=== PATIENT | male | born 1965 | race Caucasian/White ===

== ENCOUNTER 2017-10-02 06:19 | Inpatient (IN) ==
[2017-10-02] MEDS ORDERED: cefOXitin 2,000 MG in Water for inj. (sterile) 20 ML 10 ML IVP ONE (06:40)
[2017-10-02] MEDS ORDERED: *HR* FentaNYL (PF) 100 MCG/2 ML VIAL ONE ×2 (07:13→09:32)
[2017-10-02] MEDS ORDERED: *HR* Midazolam HCl 2 MG/2 ML VIAL ONE (07:13)
[2017-10-02] MEDS ORDERED: *HR* Propofol 200 MG/20 ML VIAL IVP ONE ×2 (07:13→10:36)
[2017-10-02] MEDS ORDERED: Lidocaine -MPF 2% 2 ML VIAL ONE (07:17)
[2017-10-02] MEDS ORDERED: *HR* Rocuronium Bromide 50 MG/5 ML VIAL ONE ×2 (07:17→08:47)
--- NOTE | 2017-10-02 07:19 | Anesthesia Evaluation PreOp ---
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 HX Other Medical History: Hepatic (hepatic steatosis), Diabetes Type II Anesthesia History: No Prior Anesthetic Complications, Past Anesthesia Alcohol Use: none Drug use: none Medications and Allergies Acetaminophen [Tylenol] 1,000 mg PO Q6HR 08/20/16 [History] Allopurinol [Zyloprim 100 MG] 100 mg PO BID 08/20/16 [History] Gemfibrozil [Lopid] 600 mg PO DAILY 08/20/16 [History] Losartan Potassium [Cozaar] 50 mg PO DAILY 08/20/16 [History] Metformin HCl [Fortamet] 500 mg PO DAILY 08/20/16 [History] Alprazolam [Alprazolam Xr] 0.5 mg PO DAILY 07/30/17 [History] Aspirin [Lo-Dose Aspirin EC] 81 mg PO DAILY 07/30/17 [History] Atorvastatin Calcium [Lipitor] 80 mg PO HS 07/30/17 [History] Sitagliptin Phosphate [Januvia] 50 mg PO DAILY 07/30/17 [History] 3 Allergy/AdvReac Type Severity Reaction Status Date / Time No Known Allergies Allergy Verified 09/13/17 16:02 - Meds/Allergy Pre-op Review Medications Reviewed: Yes Allergies Reviewed: Yes Beta Blockers on Current Med List: Yes If Beta Blockers taken, Date/Time (Last Dose taken): 10/02/2017 at 0500 Anesthesia Results - Labs Laboratory Tests 09/04/16 09/13/17 09/18/17 00:38 14:30 07:08 WBC 5.8 Hgb 14.8 Hct 43.7 Plt Count 229 PT 21.9 H INR 2.0 APTT 26.9 Sodium 137 Potassium 4.2 BUN 26 H Creatinine 1.08 - Imaging EKG: report reviewed (09/13/2017 SINUS RHYTHM RIGHT BUNDLE BRANCH BLOCK LEFT ANTERIOR FASCICULAR BLOCK POSSIBLE LEFT VENTRICULAR HYPERTROPHY) Additional studies: 08/20/2016 LEFT HEART CATH Indications: Unstable Angina, Acsending aortic anuerysm Impressions: The left ventricle is normal and has normal contractility EF 65% Moderate atherosclerotic coronary artery disease. Recommendations: Optimal medical therapy of patient's disease. Aggressive risk factor modification. 08/20/2016 Echo Impressions: LVEF 60%. Normal LV chamber size, wall thickness and function. Mild left ventricular diastolic dysfunction. Normal right ventricular structure and function. No evidence of pulmonary hypertension. Portions of the aortic root visualized appear dilated with effacement of the sinotubular junction, largest diameter 4.7 cm. Trace aortic regurgitation. Anesthesia Exam O2 Sat Height 1.68 m Height 1.68 m Height 1.68 m Weight 111.13 kg Weight 111.13 kg Weight 111.13 kg O2 Sat by Pulse Oximetry 96 O2 Sat by Pulse Oximetry 96 Vital Signs Temp Pulse Resp BP Pulse Ox 97.7 F 62 18 120/76 96 10/02/17 06:41 10/02/17 06:41 10/02/17 06:41 10/02/17 06:41 10/02/17 06:41 Blood glucose: 120 Height: 5'6'' Weight: 245 lbs NPO (# of Hours): 8 Pain Scale: 0 Pain Scale Used: Numeric (1 - 10) - HEENT Pupil (Motor): EOMI Mallampati: III Teeth: Normal Oral Opening: Greater than 3 - OILSEED MEAT PRESSER LOC: Oriented OIL[employer]ED MEAT [employer]ESSER Motor: Normal RUE, Normal LUE, Normal RLE, Normal LLE, Normal Face OIL[employer]ED [employer] Sensory: Normal: RUE, LUE, RLE, LLE, Face - Cardiac Rhythm: Regular Murmur: None - Pulmonary Breath Sounds: bilateral Clear Respiratory Effort: Symmetrical Anesthesia Assess/Plan ASA Score: 3 Modified Evin Scale for Level of Consciousness: Cooperative, oriented, and tranquil Anesthetic Plan: General Monitoring Plan: Standard Monitors Recovery Plan: PACU
[2017-10-02] MEDS: Ringers Solution, Lactated 1,000 ML IVC SCH ×2 (07:42→10:05)
--- NOTE | 2017-10-02 08:13 | History & Physical Report ---
Date of Encounter: 10/02/17 Time of Encounter: 08:12 24 Hour HP Update - Instructions Instructions: If the History and Physical is less than 30 days old and was completed prior to A.M. admission and or procedure and has NOT been updated on calendar day of procedure please complete this update prior to performing procedure. - Update Patient reports changes in Medical Condition: No Changes in examination, assessment, or condition: No Changes in Medication: No Preop tests/diagnostics Reviewed: Yes Surgery Remains Indicated: Yes Consent for Planned Operative Procedure(s) Verified: Yes - Pre-Operative Checklist Preoperative Checklist Indicated: Yes Prophylactic Antibiotic Ordered: Yes Home Medications Include Beta Jossue: Yes Beta Jossue Taken Today (Day of Surgery): Yes
[2017-10-02] MEDS ORDERED: Ondansetron 4 MG/2 ML VIAL ONE (08:44)
[2017-10-02] MEDS ORDERED: Dexamethasone 4 MG/ML VIAL ONE (08:44)
[2017-10-02] MEDS ORDERED: Neostigmine Methylsulfate 3 MG/3 ML SYRINGE ONE (10:51)
[2017-10-02] MEDS ORDERED: *HR* Promethazine 25 MG/ML VIAL IVP PRN (11:06)
[2017-10-02] MEDS ORDERED: *HR* Meperidine 25 MG/ML SYRINGE IVP PRN (11:06)
[2017-10-02] MEDS ORDERED: Albuterol 2.5 MG/3 ML NEBULIZER IH PRN (11:06)
[2017-10-02] MEDS: MORPHINE SUL Oral CONC 10 MG/0.5 ML ORAL.SYG SL PRN ×2 (11:19→11:26)
--- NOTE | 2017-10-02 11:43 | Anesthesia Evaluation Post Op ---
Date of Encounter: 10/02/17 Time of Encounter: 11:40 - Vital Signs Vital Signs: vss - Lungs Lungs: Clear Ascult./Percussion - Airway Airway: Non-obstructed - Cardiovascular Regular Rate - Mental Status Mental Status: Alert & Oriented, Answers Appropriately - Pain Pain Scale: 5 Pain Scale used: Numeric (1 - 10) - Nausea Vomiting Nausea Vomiting: Not Present Notes: 10/02/17 11:42 pt not taken liquids or ice chips but has tolerated po pain meds - Discharge PostOp Status: Transfer Patient to floor
[2017-10-02] MEDS ORDERED: Morphine Oral CONC 5 MG/0.25 ML ORAL.SYG PO PRN (12:11)
[2017-10-02] MEDS ORDERED: Ondansetron 4 MG/2 ML VIAL IVP PRN (12:11)
[2017-10-02] MEDS ORDERED: Dextrose Gel 15 GM/37.5 ML TUBE PO PRN ×2 (12:11)
[2017-10-02] MEDS ORDERED: D5% in Water 1,000 ML IVC PRN (12:11)
[2017-10-02] MEDS ORDERED: OXYCODONE Oral CONC 10 MG/0.5 ML ORAL.SYG SL PRN (12:11)
[2017-10-02] MEDS ORDERED: *HR* Dextrose 50 % in Water (Syg) 50 ML SYRINGE IVP PRN (12:11)
[2017-10-02] MEDS ORDERED: ALPRAZolam 0.5 MG TABLET PO PRN (12:11)
[2017-10-02] MEDS: Ketorolac 15 MG/ML VIAL IVP SCH ×3 (12:33→23:44)
[2017-10-02] MEDS: 0.9 % Sodium Chloride 1,000 ML IVC SCH ×2 (12:33→23:45)
--- NOTE | 2017-10-02 16:25 | Operative Note ---
Date of procedure: 10/02/17 Pre-op diagnosis: Unresectable ascending colon polyp Post-op diagnosis: same Procedure: Robotic Ascending colon with stapled anastomosis Anesthesia: INDU Surgeon: Elliott Amaya Was there an welder assistant present: Yes Nursing Consultant: Cherelle Ying Estimated blood loss (cc): 10 Specimen: colon Condition: stable Disposition: same day Procedure in Detail: After informed consent, the patient was taken the operating room placed in the supine position. After adequate sedation and anesthesia the abdomen was prepped and draped. [address] the umbilicus and a Verres needle was inserted into the abdomen. A pneumoperitoneum was created. 3 individual 8 mm cannulas were placed along with a 13 mm cannula. Once in place the [employer] XI robot was brought over the patient's right hip and positioned. The ports were connected the robot. Attention was replaced. Small bowel was swept to the left lateral position. The cecum and ileum were grasped and the vascular pedicle was identified. A window was created. The duodenum was readily identified and kept out of harm's way. The vascular pedicle was taken with a vessel sealer. The remainder of the colon was dissected free from the retroperitoneum. Once the transverse mesocolon had been divided to the level of the transverse colon it was stapled with a robotic stapler. The same was performed for the terminal ileum. Once that was completed the remainder of the lateral attachments were taken down with a vessel sealer. Colon was parked over the patient's right abdomen. The terminal ileum was then placed next to the transverse colon. 2 enterotomies were created and the colon and the small bowel and a 45 mm stapler was fired down both limbs. The common enterotomy was closed with 2-0 silk suture 2. Once completed the ports were removed and the pneumoperitoneum was evacuated. A small midline incision was made and the specimen was retrieved through a wound protection bag. Once finished the midline was closed with a looped PDS suture and the 13 mm cannula was closed with a 0 Vicryl. Chaim were placed in the skin.
[2017-10-02] MEDS: Insulin LISPRO 300 UNITS/3 ML VIAL SQ SCH (16:53)
[2017-10-02] MEDS: *HR* Heparin 5,000 UNIT/ML VIAL SQ SCH (19:47)
[2017-10-02] MEDS ORDERED: MORPHINE SUL Oral CONC 10 MG/0.5 ML ORAL.SYG PO PRN (20:45)
[2017-10-02] MEDS ORDERED: Insulin LISPRO 300 UNITS/3 ML VIAL SQ SCH (21:00)
[2017-10-03] MEDS: Ketorolac 15 MG/ML VIAL IVP SCH ×2 (05:31→12:49)
[2017-10-03] MEDS: *HR* Heparin 5,000 UNIT/ML VIAL SQ SCH (05:32)
[2017-10-03] MEDS ORDERED: *HR* Metformin 500 MG TABLET PO SCH (08:00)
[2017-10-03] MEDS: Insulin LISPRO 300 UNITS/3 ML VIAL SQ SCH ×2 (08:10→12:00)
[2017-10-03] MEDS ORDERED: *HR* SitaGLIPtin 25 MG TABLET PO SCH (09:00)
[2017-10-03] MEDS ORDERED: Aspirin Enteric Coated 81 MG Tablet PO SCH (09:00)
[2017-10-03] MEDS ORDERED: *HR* OxyCODONE/APAP 5/325 TABLET PO PRN (10:00)
--- NOTE | 2017-10-03 10:01 | Discharge Summary ---
Orders not resulted at time of discharge: Pending orders 10/02/17 10:50 Surgical Pathology [PTH] Routine Date of Encounter: 10/03/17 Time of Encounter: 10:21 - Discharge Diagnosis (1) S/P colon resection Priority: Primary Status: Acute (2) Diastasis recti Priority: Secondary Status: Chronic (3) T2DM (type 2 diabetes mellitus) Priority: Secondary Status: Chronic Qualifiers: Diabetes mellitus halfway insulin use: without halfway use Diabetes mellitus complication status: with unspecified complications Qualified Code(s) : E11.8 - Type 2 diabetes mellitus with unspecified complications (4) Essential (primary) hypertension Priority: Secondary Status: Chronic (5) Obesity (BMI 30-39.9) Priority: Secondary Status: Chronic General Surgery Exam Initial Vital Signs Temp Pulse Resp BP Pulse Ox 97.7 F 62 18 120/76 96 10/02/17 06:41 10/02/17 06:41 10/02/17 06:41 10/02/17 06:41 10/02/17 06:41 VITAL SIGNS: Reviewed. See [facility] GENERAL: In no apparent distress. Sitting upright at edge of bed. at bedside. HEENT: Normocephalic, atraumatic, pupils are equal and reactive, extraocular motions intact, oropharynx is pink and moist, there is no neck adenopathy or JVD noted. CHEST/RESPIRATORY: The thorax is free from signs of trauma. Lung sounds: clear to auscultation, normal respiratory effort CARDIAC: Regular rate and rhythm. Normal S1 and S2, without murmurs, gallops, or rubs. VASCULAR: No Edema. 2+ peripheral pulses. ABDOMEN: protuberant, soft, expected postoperative tenderness, active bowel sounds, diastasis recti noted. INCISION: Surgical incision is clean, dry, and intact. There are no signs of cellulitis or infection noted. MUSCULOSKELETAL: Good range of motion of all major joints. Extremities without clubbing, cyanosis or edema. NEUROLOGIC EXAM: Alert and oriented x 3. Speech normal. Follows commands. PSYCHIATRIC: Mood normal. SKIN: No rash or lesions. - Hospital Course Hospital course: Mr. Doe is a 51 year old male who presented on 10/02/2017 for an uncomplicated robotic ascending colon resection with stapled anastomisis due to an unresectable descending colon polyp, under general anesthesia, by Dr. Amaya. He is ambulating and voiding without difficulty, tolerating a full liquid diet without nausea and vomiting, vital signs are stable, and he is afebrile. We will begin discharge planning to home with a follow-up in the office in 2 weeks. - Time Spent with Patient Total time spent providing and/or coordinating discharge services: - Discharge Medications Prescriptions: OxyCODONE/APAP 5/325 [Percocet 5/325 MG] 1 each PO Q4HR PRN 7 Days #28 tablet PRN Reason: Pain Docusate Sodium [Colace] 100 mg PO BID #30 capsule Ibuprofen 800 mg PO Q8H #30 tablet Home Medications: Allopurinol [Zyloprim 100 MG] 100 mg PO BID 08/20/16 [History] Metformin HCl [Fortamet] 500 mg PO DAILY 08/20/16 [History] Alprazolam [Alprazolam Xr] 0.5 mg PO BID PRN 07/30/17 [History] Aspirin [Lo-Dose Aspirin EC] 81 mg PO DAILY 07/30/17 [History] Atorvastatin Calcium [Lipitor] 80 mg PO DAILY 07/30/17 [History] Sitagliptin Phosphate [Januvia] 50 mg PO DAILY 07/30/17 [History] Metoprolol [Lopressor] 25 mg PO BID 10/02/17 [History] Docusate Sodium [Colace] 100 mg PO BID #30 capsule 10/03/17 [Rx] Ibuprofen 800 mg PO Q8H #30 tablet 10/03/17 [Rx] OxyCODONE/APAP 5/325 [Percocet 5/325 MG] 1 each PO Q4HR PRN 7 Days #28 tablet [Rx] Allergies/Adverse Reactions: 3 Allergy/AdvReac Type Severity Reaction Status Date / Time No Known Allergies Allergy Verified 10/02/17 07:46 Date of admission: 10/02/17 12:03 Primary care physician: Dieter Messer Discharging clinician: Berkley Tirado Anticipated date of discharge: 10/03/17 Labs on day of discharge: Labs from last 24 hours 10/03/17 10/02/17 10/02/17 07:47 20:18 16:37 POC Glucose 124 H 179 H 181 H 10/02/17 10/02/17 12:50 06:39 POC Glucose 154 H 120 H - Patient Status Disposition: Home, Self-Care Condition: Good Functional capacity at discharge: independent ambulation Overall status at discharge: patient is progressing back to baseline - Discharge Instructions Instructions: Low Fiber Diet (GEN), Colectomy (DC) Follow Up With: Berkley Tirado CNP [Advanced Practice Nurse] - 10/15/17 1:00 pm Additional Instructions: General Surgical Discharge Instructions 1. No pushing, pulling, or lifting greater than 15 lbs for 4 weeks (depending upon procedure). 2. You may shower beginning today, but no tub baths, soaking, or swimming for 2 weeks. 3. You may resume driving when you are off narcotics and are safe to react in a car. 4. Take ibuprofen every 8 hours for discomfort. If this does not relieve discomfort, you may take the as needed Percocet. Take narcotics as directed. Do not take more narcotics then directed and do not share your narcotics with any other person. Do not drink alcohol while on narcotics. 5. Take stool softeners (Colace) or a water based laxative (Miralax) while taking narcotics. You may hold for loose stools. 6. Report any fevers greater than 100.5F, increase abdominal discomfort, drainage that looks like pus, increased redness or pain at the surgical site, or any vomiting. 7. Report any pain in the calves, shortness of breath, or rapid heartbeat. 8. Follow-up in the office as directed. 9. If you were prescribed antibiotics, do not stop them without talking to your provider. - Diet and Activity Activity: increase activity as tolerated, return to work once cleared by your PCP/specialist (To be determined a follow-up visit) Diet: other
[2017-10-03 11:03] VITALS: BP 127/77
== END 2017-10-03 14:32 | disposition home or self-care (01) | DRG 329 ==
LOC: SAMDAY 06:19 → 3ANU 12:03
PROVIDERS: ADMIT Surgery; ATTEND Surgery

== ENCOUNTER 2021-07-10 17:03 | Inpatient (IN) ==
[2021-07-10] MEDS ORDERED: Azithromycin 500 MG in 0.9 % Sodium Chloride 250 ML IVPB ONE (17:18)
[2021-07-10] MEDS ORDERED: cefTRIAXone 1,000 MG in 0.9 % Sodium Chloride Mini Bag 100 ML IVPB ONE (17:18)
[2021-07-10] MEDS ORDERED: Isovue-370 500 ML BOTTLE IVP ONE (17:19)
[2021-07-10] MEDS ORDERED: Vancomycin 1,500 MG/265 ML IV.SOLN IVPB ONE (17:28)
[2021-07-10] MEDS: 0.9 % Sodium Chloride 1,000 ML IVC SCH ×3 (17:36→20:03)
[2021-07-10 17:49] LABS: Basophils % 0.3 %; Eosinophils % 0.1 %; Hematocrit 36.1 % (37.5-50.1); Hemoglobin 11.8 g/dL (12.9-16.9); Immature Granulocytes % 0.5 % (0-4); Lymphocytes # 0.9 K/mcL (0.6-4.6); Lymphocytes % 7.2 %; Mean Corpuscular HGB Conc 32.7 g/dL (31.6-35.5); Mean Corpuscular Hemoglobin 29.6 pg (28.0-33.3); Mean Corpuscular Volume 90.7 fL (83.0-100.0); Mean Platelet Volume 9.1 fL (9.4-12.4); Neutrophils # 10.8 K/mcL (1.6-8.9); Platelet Count 378 K/mcL (140-400); Red Blood Count 3.98 M/mcL (4.19-5.50); Red Cell Distribution Width 13.7 % (11.5-14.5); Segmented Neutrophils % 83.9 %; White Blood Count 12.8 K/mcL (4.3-11.1)
[2021-07-10 17:56] LABS: INR 1.7; Prothrombin Time 18.5 Seconds (9.4-12.1)
[2021-07-10 17:59] LABS: Activated Partial Thrombo Time 29.9 Seconds (26.0-36.0)
[2021-07-10 18:10] LABS: Alanine Aminotransferase 28 Units/L (7-52); Albumin 3.4 g/dL (3.5-5.7); Albumin/Globulin Ratio 0.9 (1.1-2.2); Alkaline Phosphatase 59 Units/L (34-104); Aspartate Amino Transferase 27 Units/L (13-39); BUN/Creatinine Ratio 25 (6-26); Bilirubin,Direct 0.2 mg/dL (0.0-0.2); Bilirubin,Indirect 0.4 mg/dL (0.0-1.0); Bilirubin,Total 0.6 mg/dL (0.3-1.0); Blood Urea Nitrogen 29 mg/dL (6-20); Calcium 8.8 mg/dL (8.6-10.3); Carbon Dioxide 20 mEq/L (23-29); Chloride 102 mEq/L (98-107); Globulin 3.9 g/dL (2.4-3.5); Glucose 179 mg/dL (70-105); Lipase 87 Units/L (11-82); Magnesium 1.2 mg/dL (1.6-2.6); Osmolality,Calculated 292 (280-300); Phosphorous 2.1 mg/dL (2.7-4.5); Potassium 3.9 mEq/L (3.5-5.1); Sodium 136 mEq/L (136-145); Total Protein 7.3 g/dL (6.4-8.9); Troponin I 0.05 ng/mL (< 0.04); eGFR For African Americans > 60 (> 60); eGFR For Non-African Americans > 60 (> 60)
[2021-07-10 18:13] LABS: VBG HCO3 21 mEq/L (21-27); VBG PCO2 31 mmHg (41-51); VBG PH 7.44 pH Units (7.32-7.42); VBG PO2 45 mmHg (25-50)
[2021-07-10 18:38] LABS: Bilirubin,Urine Negative (Negative); Blood,Urine Small (Negative); Clarity,Urine Clear (Clear); Color,Urine Yellow (Yellow); Glucose,Urine (UA) Normal (Normal); Hyaline Casts,Urine Few per lpf (None Seen); Ketones,Urine Negative (Negative); Leukocyte Esterase,Urine Negative (Negative); Mucus,Urine Few per lpf (None-Few); Nitrite,Urine Negative (Negative); PH,Urine 5.5 pH Units (5.0-8.0); Protein,Urine 100 mg/dL (Neg-Trace); RBC,Urine 15-30 per hpf (0-3); Specific Gravity,Urine > 1.030 (1.010-1.025); Urobilinogen,Urine Normal (Normal); WBC,Urine 0-3 per hpf (0-3)
[2021-07-10] MEDS ORDERED: Ondansetron 4 MG/2 ML VIAL IVP ONE (18:39)
[2021-07-10 18:53] LABS: Adenovirus Not Detected (Not Detect); Bordetella Pertussis Not Detected (Not Detect); Chlamydophila pneumoniae Not Detected (Not Detect); Coronavirus 229E Not Detected (Not Detect); Coronavirus HKU1 Not Detected (Not Detect); Coronavirus NL63 Not Detected (Not Detect); Coronavirus OC43 Not Detected (Not Detect); Human Metapneumovirus Not Detected (Not Detect); Human Rhinovirus/Enterovirus Not Detected (Not Detect); Influenza A Subtype 2009 H1 Not Detected (Not Detect); Influenza B Not Detected (Not Detect); Mycoplasma pneumoniae Not Detected (Not Detect); Parainfluenza Virus 1 Not Detected (Not Detect); Parainfluenza Virus 2 Not Detected (Not Detect); Parainfluenza Virus 3 Not Detected (Not Detect); Parainfluenza Virus 4 Not Detected (Not Detect); Respiratory Syncytial Virus Not Detected (Not Detect); SARS-CoV-2 Not Detected (Not Detect)
[2021-07-10] MEDS ORDERED: Acetaminophen IV 1,000 MG/100 ML BAG IVPB ONE ×2 (19:26→22:17)
[2021-07-10 20:03] LABS: ABG Base Excess -3 mEq/L (-2 to 3); ABG HCO3 20 mEq/L (21-27); ABG Oxygen Saturation 81 % (95-98); ABG PCO2 30 mmHg (35-45); ABG PH 7.44 pH Units (7.32-7.45); ABG PO2 43 mmHg (85-104); ABG TCO2 21 mEq/L (20-26)
[2021-07-10] MEDS ORDERED: Ketorolac 30 MG/ML VIAL IVP STA (21:54)
[2021-07-10] MEDS ORDERED: Ketorolac 30 MG/ML VIAL IM PRN (22:51)
[2021-07-10] MEDS ORDERED: Naloxone 0.4 MG/ML INJ IVP PRN (22:51)
[2021-07-11] MEDS ORDERED: *HR* LORazepam 2 MG/ML VIAL IVP ONE ×2 (02:58→07:17)
[2021-07-11] MEDS: Ketorolac 30 MG/ML VIAL IVP PRN ×3 (05:02→23:59)
[2021-07-11 06:28] LABS: Acinetobacter baumannii by PCR Not Detected (Not Detect); Candida albicans by PCR Not Detected (Not Detect); Candida glabrata by PCR Not Detected (Not Detect); Candida krusei by PCR Not Detected (Not Detect); Candida parapsilosis by PCR Not Detected (Not Detect); Candida tropicalis by PCR Not Detected (Not Detect); Enterobacter cloacae Cmplx PCR Not Detected (Not Detect); Enterobacteriaceae by PCR Not Detected (Not Detect); Enterococcus by PCR Not Detected (Not Detect); Escherichia coli by PCR Not Detected (Not Detect); Klebsiella oxytoca by PCR Not Detected (Not Detect); Klebsiella pneumoniae by PCR Not Detected (Not Detect); Proteus by PCR Not Detected (Not Detect); Pseudomonas aeruginosa by PCR Not Detected (Not Detect); Serratia marcescens by PCR Not Detected (Not Detect); Staphylococcus aureus by PCR Not Detected (Not Detect); Staphylococcus by PCR Not Detected (Not Detect); Streptococcus agalactiae(B)PCR Not Detected (Not Detect); Streptococcus by PCR DETECTED (Not Detect); Streptococcus pneumoniae PCR Not Detected (Not Detect); Streptococcus pyogenes (A) PCR Not Detected (Not Detect); blaKPC Carbapenem-Resist Gene Not Detected (Not Detect); mecA Methicillin-Resist Gene Not Detected (Not Detect); vanA/B Vancomycin-Resist Genes Not Detected (Not Detect)
[2021-07-11] MEDS ORDERED: *HR* Dextrose 50 % in Water (Syg) 50 ML SYRINGE IVP PRN (07:36)
[2021-07-11] MEDS ORDERED: Dextrose Gel 15 GM/37.5 ML TUBE PO PRN ×2 (07:36)
[2021-07-11] MEDS ORDERED: D5% in Water 1,000 ML IVC PRN (07:36)
[2021-07-11] MEDS: Piperacillin/Tazobactam 3.375 GM in 0.9 % Sodium Chloride Mini Bag 100 ML IVPB SCH ×3 (07:37→23:59)
[2021-07-11] MEDS ORDERED: 0.9 % Sodium Chloride 1,000 ML IVC SCH (07:45)
[2021-07-11 08:16] LABS: ABG Base Excess -4 mEq/L (-2 to 3); ABG HCO3 19 mEq/L (21-27); ABG Oxygen Saturation 96 % (95-98); ABG PCO2 28 mmHg (35-45); ABG PH 7.44 pH Units (7.32-7.45); ABG PO2 78 mmHg (85-104); ABG TCO2 20 mEq/L (20-26)
[2021-07-11] MEDS: Vancomycin 1,500 MG/265 ML IV.SOLN IVPB SCH ×2 (09:02→21:06)
[2021-07-11] MEDS: Acetaminophen IV 1,000 MG/100 ML BAG IVPB PRN ×2 (10:48→17:48)
[2021-07-11] MEDS: Insulin LISPRO 300 UNITS/3 ML VIAL SUBQ SCH ×2 (13:09→17:55)
[2021-07-11] MEDS: 0.9 % Sodium Chloride 1,000 ML IVC SCH ×2 (17:00→22:17)
[2021-07-11] MEDS: *HR* Heparin 5,000 UNIT/ML VIAL SQ SCH (17:58)
[2021-07-11] MEDS: ALPRAZolam 0.5 MG TABLET PO PRN (20:22)
[2021-07-11] MEDS: allopurinoL 100 MG TABLET PO SCH (20:22)
[2021-07-12] MEDS: Insulin LISPRO 300 UNITS/3 ML VIAL SUBQ SCH ×4 (00:05→22:00)
[2021-07-12] MEDS: Acetaminophen IV 1,000 MG/100 ML BAG IVPB PRN ×3 (04:37→23:34)
[2021-07-12] MEDS: *HR* Heparin 5,000 UNIT/ML VIAL SQ SCH (04:59)
[2021-07-12 05:23] LABS: BUN/Creatinine Ratio 34 (6-26); Blood Urea Nitrogen 36 mg/dL (6-20); Calcium 7.8 mg/dL (8.6-10.3); Carbon Dioxide 22 mEq/L (23-29); Chloride 108 mEq/L (98-107); Glucose 108 mg/dL (70-105); Osmolality,Calculated 303 (280-300); Sodium 142 mEq/L (136-145); eGFR For African Americans > 60 (> 60); eGFR For Non-African Americans > 60 (> 60)
[2021-07-12] MEDS ORDERED: Heparin 25,000UNIT/250ML 1/2NS 25,000 UNIT/250 ML IV.SOLN IVC SCH ×2 (06:30→08:00)
[2021-07-12 06:39] LABS: Basophils % 0.2 %; Hematocrit 30.3 % (37.5-50.1); Hemoglobin 9.5 g/dL (12.9-16.9); Immature Granulocytes % 0.6 % (0-4); Lymphocytes % 7.4 %; Mean Corpuscular HGB Conc 31.4 g/dL (31.6-35.5); Mean Corpuscular Hemoglobin 29.3 pg (28.0-33.3); Mean Corpuscular Volume 93.5 fL (83.0-100.0); Monocytes # 0.9 K/mcL (0.0-1.3); Monocytes % 6.7 %; Neutrophils # 11.1 K/mcL (1.6-8.9); Platelet Count 388 K/mcL (140-400); Red Blood Count 3.24 M/mcL (4.19-5.50); Red Cell Distribution Width 14.2 % (11.5-14.5); Segmented Neutrophils % 85.1 %; White Blood Count 13.1 K/mcL (4.3-11.1)
[2021-07-12] MEDS ORDERED: *HR* Heparin 5,000 UNIT/ML VIAL IVP PRN ×2 (07:50)
[2021-07-12] MEDS: Ketorolac 30 MG/ML VIAL IVP PRN (08:15)
[2021-07-12] MEDS: Piperacillin/Tazobactam 3.375 GM in 0.9 % Sodium Chloride Mini Bag 100 ML IVPB SCH ×2 (09:23→21:58)
[2021-07-12] MEDS: Vancomycin 1,500 MG/265 ML IV.SOLN IVPB SCH (09:23)
[2021-07-12] MEDS: allopurinoL 100 MG TABLET PO SCH ×2 (09:23→22:05)
[2021-07-12 11:06] LABS: Heparin anti-factor XA UFH < 0.04 IU/mL (0.30-0.70); INR 1.5; Prothrombin Time 16.5 Seconds (9.4-12.1)
[2021-07-12] MEDS ORDERED: Perflutren Lipid Microsphere 1.3 ML in 0.9 % Sodium Chloride 8.7 ML IVP PRN (14:08)
[2021-07-12] MEDS: ALPRAZolam 0.5 MG TABLET PO PRN (22:05)
[2021-07-12] MEDS: Vancomycin 1,750 MG/517.5 ML IV.SOLN IVPB SCH (22:21)
[2021-07-12] MEDS ORDERED: Melatonin 3 MG TABLET PO PRN (22:49)
[2021-07-13] MEDS: Insulin LISPRO 300 UNITS/3 ML VIAL SUBQ SCH ×4 (00:14→16:51)
[2021-07-13] MEDS: Piperacillin/Tazobactam 3.375 GM in 0.9 % Sodium Chloride Mini Bag 100 ML IVPB SCH ×2 (00:21→09:41)
[2021-07-13] MEDS: Vancomycin 1,750 MG/517.5 ML IV.SOLN IVPB SCH (09:42)
[2021-07-13] MEDS: allopurinoL 100 MG TABLET PO SCH (09:42)
[2021-07-13] MEDS: ALPRAZolam 0.5 MG TABLET PO PRN (12:30)
[2021-07-13 14:39] LABS: BUN/Creatinine Ratio 27 (6-26); Blood Urea Nitrogen 26 mg/dL (6-20); eGFR For African Americans > 60 (> 60); eGFR For Non-African Americans > 60 (> 60)
[2021-07-13 15:22] VITALS: O2SAT 95
[2021-07-13 15:44] VITALS: BP 134/66
[2021-07-13] MEDS ORDERED: Penicillin G Potassium 4,000,000 UNIT in 0.9 % Sodium Chloride 100 ML IVPB SCH (16:00)
[2021-07-13] MEDS ORDERED: rifAMPin 150 MG CAPSULE PO SCH (16:30)
[2021-07-13 17:02] VITALS: TEMP 99.5
[2021-07-13 17:52] VITALS: PULSE 95
== END 2021-07-13 19:43 | disposition short-term general hospital (02) | DRG 280 ==
LOC: EMEROOARM 17:03 → 2NNU 17:03 → SUATTDRO 07-11 18:49
PROVIDERS: ADMIT Internal Medicine; ATTEND Internal Medicine